=== PATIENT | female | born 1995 | race Caucasian/White ===

== ENCOUNTER 2019-10-08 14:20 | Emergency (ER) | payer SELFPAY ==
--- NOTE | 2019-10-08 14:28 | EDM.PDOC ---
<Justus Jaimes - Last Filed: 10/08/19 18:37> ED HPI GENERAL MEDICAL PROBLEM - General Chief Complaint: General Stated Complaint: PROBLEM W/ IUD Time Seen by Provider: 10/08/19 14:24 Source of Information: Reports: Patient History Limitations: Reports: No Limitations - History of Present Illness INITIAL COMMENTS - FREE TEXT/NARRATIVE: 25-year-old female presents with pelvic pain that started last night while she was having sex with a one night stand partner. He had large girth and penis length estimated to be 7inches. They had sex in missionary position, girl on top position, but was not forceful. She thinks the IUD ripped his condom during sex. He did not ejaculate. IUD has been in since March. She denies fever, chills, vaginal bleeding or discharge. She does admit to suprapubic pain and dysuria. ROS: A 10-point review of systems, other than pertinent positives and negatives as stated per HPI, is otherwise negative Past medical history: No additional pertinent history Past Surgical history: No additional pertinent history Social history: No additional pertinent history Family history: No additional pertinent history PHYSICAL EXAM General: AOx4, GCS = 15, severe distress HEENT: dry mucous membrane Neck: supple, no meningismus, no Kernig or Brudzinski Cardiac: S1S2 tachycardia Respiratory: CTAB, no crackles or rales, no wheezing Abdomen: Soft, RLQ ttp, no rebound or guarding, nondistended, no pulsatile mass. Back: nontender : right adnexal ttp, no discharge, os closed with IUD strings in the vault, no CMT, no left adnexal ttp. Musculoskeletal: NVI distally, no deformity Neuro: No focal deficits, CN 2 - 12 WNL. vaginal Pain Score (Numeric/FACES): 8 - Related Data Allergies Allergy/AdvReac Type Severity Reaction Status Date / Time No Known Allergies Allergy Verified 10/08/19 14:23 Home Meds: Home Meds levonorgestreL [Kyleena] 1 each IMPLANT 10/08/19 [History] ED ROS GENERAL - Review of Systems Review Of Systems: Comprehensive ROS is negative, except as noted in HPI. ED EXAM, GENERAL - Physical Exam Exam: See Below (see dictation) Course - Re-Assessments/Exams Free Text/Narrative Re-Assessment/Exam: 10/08/19 18:37 - I discussed the case with Dr. Goss prior to CT A/P result. She will follow up on CT and is aware of potential consult. MEDICAL DECISION MAKING: I reviewed the patients past medical records, lab and radiographic findings. I discussed the case with the patient. My differential diagnosis included: Ruptured hemorrhagic ovarian cyst, perforated viscus, intraperitoneal bleed. Departure - Departure Disposition: Home, Self-Care 01 Condition: Good Clinical Impression: Ruptured ovarian cyst - Discharge Information *PRESCRIPTION DRUG MONITORING PROGRAM REVIEWED*: Not Applicable *COPY OF PRESCRIPTION DRUG MONITORING REPORT IN PATIENT RAFAELA: Not Applicable Instructions: Ovarian Cyst, [id number] Referrals: PCP,None [Primary Care Provider] - Forms: ED Department Discharge Additional Instructions: The need for follow-up, as well as the timing and circumstances, are variable depending upon the specifics of your emergency department visit. If you don't have a primary care physician on staff, we will provide you with a referral. We always advise you to contact your personal physician following an emergency department visit to inform them of the circumstance of the visit and for follow-up with them and/or the need for any referrals to a consulting specialist. The emergency department will also refer you to a specialist when appropriate. This referral assures that you have the opportunity for follow-up care with a specialist. All of these measure are taken in an effort to provide you with optimal care, which includes your follow-up. Under all circumstances we always encourage you to contact your private physician who remains a resource for coordinating your care. When calling for follow-up care, please make the office aware that this follow-up is from your recent emergency room visit. If for any reason you are refused follow-up, please contact the [facility] Emergency Department at and asked to speak to the emergency department charge nurse. [employer] [facility] [address] [place] [id number] Sepsis Event Note (ED) - Evaluation Sepsis Screening Result: No Definite Risk <Alvin Bedoya - Last Filed: 10/08/19 20:41> Course - Vital Signs Text/Narrative:: 1936 hrs. patient was signed out to me by my partner worked her up. Already talked to Dr. Goss he the surgeon the patient has a CT that does not show anything that looks dangerous or surgical. She apparently has ruptured an ovarian cyst and had some fluid in the pelvis secondary to that. Dr. Goss and the radiologist both agreed that CT did not show any surgical pathology. Repeat CBC will be done and if hemoglobin is stable she will be discharged in satisfactory condition 2031 hrs. the patient's hemoglobin dropped from 14.7-12.6 but her blood pressure was 117 with a pulse of 72 supine sitting and standing. Although she got a little bit dizzy she appeared to be in no acute distress. I discussed the case one more time with Dr. Goss. And we decided that she can go home unless her symptoms worsen. Last Recorded V/S: Last Vital Signs Temp 96.2 F L 10/08/19 19:13 Pulse 79 10/08/19 19:13 Resp 14 10/08/19 19:13 BP 117/81 10/08/19 19:13 Pulse Ox 98 10/08/19 19:13 Orthostatic Blood Pressure [ 116/85 Standing] Orthostatic Blood Pressure [ 112/68 Sitting] Orthostatic Blood Pressure [ 111/66 Supine] - Orders/Labs/Meds Orders: Active Orders 24 hr Category Date Time Status CHLAMYDIA AND GONORRHEA BY TMA Stat Lab 10/08/19 16:05 Received HEMOGLOBIN (HGB) SOLUBILITY [REF] Stat Lab 10/08/19 17:30 Received Sodium Chloride 0.9% [Saline Flush] Med 10/08/19 17:15 Active 10 ml FLUSH ASDIRECTED PRN Sodium Chloride 0.9% [Saline Flush] Med 10/08/19 17:15 Active 2.5 ml FLUSH ASDIRECTED PRN Saline Lock Insert [OM.PC] Stat Oth 10/08/19 17:15 Ordered Medication Orders Sodium Chloride (Saline Flush) 10 ml FLUSH ASDIRECTED PRN PRN Reason: Keep Vein Open Last Admin: 10/08/19 17:30 Dose: 10 ml Documented by: NGHIA Sodium Chloride (Saline Flush) 2.5 ml FLUSH ASDIRECTED PRN PRN Reason: Keep Vein Open Last Admin: 10/08/19 17:30 Dose: 2.5 ml Documented by: NGHIA Labs: Laboratory Tests 10/08/19 10/08/19 10/08/19 Range/Units 15:06 15:06 17:30 WBC 12.98 H (4.0-11.0) K/uL RBC 4.72 (4.30-5.90) M/uL Hgb 14.7 (12.0-16.0) g/dL Hct 43.8 (36.0-46.0) % MCV 92.8 (80.0-98.0) fL MCH 31.1 (27.0-32.0) pg MCHC 33.6 (31.0-37.0) g/dL RDW Std Deviation 41.1 (28.0-62.0) fl RDW Coeff of Sole 12 (11.0-15.0) % Plt Count 236 (150-400) K/uL MPV 10.20 (7.40-12.00) fL Neut % (Auto) 74.7 (48.0-80.0) % Lymph % (Auto) 16.6 (16.0-40.0) % Island % (Auto) 7.4 (0.0-15.0) % Eos % (Auto) 1.1 (0.0-7.0) % Baso % (Auto) 0.2 (0.0-1.5) % Neut # (Auto) 9.7 H (1.4-5.7) K/uL Lymph # (Auto) 2.2 (0.6-2.4) K/uL Island # (Auto) 1.0 H (0.0-0.8) K/uL Eos # (Auto) 0.1 (0.0-0.7) K/uL Baso # (Auto) 0.0 (0.0-0.1) K/uL Nucleated RBC % 0.0 /100WBC Nucleated RBCs # 0 K/uL APTT (18.6-31.3) SEC Lactate (0.20-2.00) mmol/L Sodium (136-145) mmol/L Potassium (3.5-5.1) mmol/L Chloride (98-107) mmol/L Carbon Dioxide (21.0-32.0) mmol/L BUN (7.0-18.0) mg/dL Creatinine (0.6-1.0) mg/dL Est Cr Clr Drug Dosing mL/min Estimated GFR (MDRD) ml/min Glucose (74-106) mg/dL Calcium (8.5-10.1) mg/dL Total Bilirubin (0.2-1.0) mg/dL AST (15-37) IU/L ALT (14-63) IU/L Alkaline Phosphatase (46-116) U/L Total Protein (6.4-8.2) g/dL Albumin (3.4-5.0) g/dL Globulin (2.6-4.0) g/dL Albumin/Globulin Ratio (0.9-1.6) Urine Color YELLOW Urine Appearance CLEAR Urine pH 7.0 (5.0-8.0) Ur Specific Merrill 1.020 (1.001-1.035) Urine Protein NEGATIVE (NEGATIVE) mg/dL Urine Glucose (UA) NEGATIVE (NEGATIVE) mg/dL Urine Ketones NEGATIVE (NEGATIVE) mg/dL Urine Occult Blood NEGATIVE (NEGATIVE) Urine Nitrite NEGATIVE (NEGATIVE) Urine Bilirubin NEGATIVE (NEGATIVE) Urine Urobilinogen 2.0 H (<2.0) EU/dL Ur Leukocyte Esterase NEGATIVE (NEGATIVE) Urine RBC 0-3 (0-2/HPF) Urine WBC 0-3 (0-5/HPF) Ur Epithelial Cells FEW (NONE-FEW) Urine Bacteria 1+ H (NEGATIVE) Urine HCG, Qual NEGATIVE (NEGATIVE) 10/08/19 10/08/19 10/08/19 Range/Units 17:30 17:30 17:30 WBC (4.0-11.0) K/uL RBC (4.30-5.90) M/uL Hgb (12.0-16.0) g/dL Hct (36.0-46.0) % MCV (80.0-98.0) fL MCH (27.0-32.0) pg MCHC (31.0-37.0) g/dL RDW Std Deviation (28.0-62.0) fl RDW Coeff of Sole (11.0-15.0) % Plt Count (150-400) K/uL MPV (7.40-12.00) fL Neut % (Auto) (48.0-80.0) % Lymph % (Auto) (16.0-40.0) % Island % (Auto) (0.0-15.0) % Eos % (Auto) (0.0-7.0) % Baso % (Auto) (0.0-1.5) % Neut # (Auto) (1.4-5.7) K/uL Lymph # (Auto) (0.6-2.4) K/uL Island # (Auto) (0.0-0.8) K/uL Eos # (Auto) (0.0-0.7) K/uL Baso # (Auto) (0.0-0.1) K/uL Nucleated RBC % /100WBC Nucleated RBCs # K/uL APTT 27.8 (18.6-31.3) SEC Lactate 0.9 (0.20-2.00) mmol/L Sodium 138 (136-145) mmol/L Potassium 3.9 (3.5-5.1) mmol/L Chloride 103 (98-107) mmol/L Carbon Dioxide 27.3 (21.0-32.0) mmol/L BUN 9 (7.0-18.0) mg/dL Creatinine 0.9 (0.6-1.0) mg/dL Est Cr Clr Drug Dosing 65.29 mL/min Estimated GFR (MDRD) > 60.0 ml/min Glucose 81 (74-106) mg/dL Calcium 8.7 (8.5-10.1) mg/dL Total Bilirubin 0.9 (0.2-1.0) mg/dL AST 23 (15-37) IU/L ALT 23 (14-63) IU/L Alkaline Phosphatase 90 (46-116) U/L Total Protein 7.5 (6.4-8.2) g/dL Albumin 4.3 (3.4-5.0) g/dL Globulin 3.2 (2.6-4.0) g/dL Albumin/Globulin Ratio 1.3 (0.9-1.6) Urine Color Urine Appearance Urine pH (5.0-8.0) Ur Specific Merrill (1.001-1.035) Urine Protein (NEGATIVE) mg/dL Urine Glucose (UA) (NEGATIVE) mg/dL Urine Ketones (NEGATIVE) mg/dL Urine Occult Blood (NEGATIVE) Urine Nitrite (NEGATIVE) Urine Bilirubin (NEGATIVE) Urine Urobilinogen (<2.0) EU/dL Ur Leukocyte Esterase (NEGATIVE) Urine RBC (0-2/HPF) Urine WBC (0-5/HPF) Ur Epithelial Cells (NONE-FEW) Urine Bacteria (NEGATIVE) Urine HCG, Qual (NEGATIVE) 10/08/19 Range/Units 19:40 WBC (4.0-11.0) K/uL RBC (4.30-5.90) M/uL Hgb 12.6 (12.0-16.0) g/dL Hct 38.3 (36.0-46.0) % MCV (80.0-98.0) fL MCH (27.0-32.0) pg MCHC (31.0-37.0) g/dL RDW Std Deviation (28.0-62.0) fl RDW Coeff of Sole (11.0-15.0) % Plt Count (150-400) K/uL MPV (7.40-12.00) fL Neut % (Auto) (48.0-80.0) % Lymph % (Auto) (16.0-40.0) % Island % (Auto) (0.0-15.0) % Eos % (Auto) (0.0-7.0) % Baso % (Auto) (0.0-1.5) % Neut # (Auto) (1.4-5.7) K/uL Lymph # (Auto) (0.6-2.4) K/uL Island # (Auto) (0.0-0.8) K/uL Eos # (Auto) (0.0-0.7) K/uL Baso # (Auto) (0.0-0.1) K/uL Nucleated RBC % /100WBC Nucleated RBCs # K/uL APTT (18.6-31.3) SEC Lactate (0.20-2.00) mmol/L Sodium (136-145) mmol/L Potassium (3.5-5.1) mmol/L Chloride (98-107) mmol/L Carbon Dioxide (21.0-32.0) mmol/L BUN (7.0-18.0) mg/dL Creatinine (0.6-1.0) mg/dL Est Cr Clr Drug Dosing mL/min Estimated GFR (MDRD) ml/min Glucose (74-106) mg/dL Calcium (8.5-10.1) mg/dL Total Bilirubin (0.2-1.0) mg/dL AST (15-37) IU/L ALT (14-63) IU/L Alkaline Phosphatase (46-116) U/L Total Protein (6.4-8.2) g/dL Albumin (3.4-5.0) g/dL Globulin (2.6-4.0) g/dL Albumin/Globulin Ratio (0.9-1.6) Urine Color Urine Appearance Urine pH (5.0-8.0) Ur Specific Merrill (1.001-1.035) Urine Protein (NEGATIVE) mg/dL Urine Glucose (UA) (NEGATIVE) mg/dL Urine Ketones (NEGATIVE) mg/dL Urine Occult Blood (NEGATIVE) Urine Nitrite (NEGATIVE) Urine Bilirubin (NEGATIVE) Urine Urobilinogen (<2.0) EU/dL Ur Leukocyte Esterase (NEGATIVE) Urine RBC (0-2/HPF) Urine WBC (0-5/HPF) Ur Epithelial Cells (NONE-FEW) Urine Bacteria (NEGATIVE) Urine HCG, Qual (NEGATIVE) Meds: Medications Generic Name Dose Route Start Last Admin Trade Name Freq PRN Reason Stop Dose Admin Sodium Chloride 10 ml 10/08/19 17:15 10/08/19 17:30 Saline Flush FLUSH 10 ml ASDIRECTED PRN Administration Keep Vein Open Sodium Chloride 2.5 ml 10/08/19 17:15 10/08/19 17:30 Saline Flush FLUSH 2.5 ml ASDIRECTED PRN Administration Keep Vein Open Discontinued Medications Generic Name Dose Route Start Last Admin Trade Name Freq PRN Reason Stop Dose Admin Hydrocodone Bitart/Acetaminophen 1 tab 10/08/19 20:34 10/08/19 20:39 [place] 325-10 Mg PO 10/08/19 20:35 1 tab ONETIME ONE Administration Lactated Ringer's 1,000 mls @ 999 mls/hr 10/08/19 17:15 10/08/19 17:28 Ringers, Lactated IV 10/08/19 18:15 999 mls/hr .BOLUS ONE Administration Iopamidol 50 ml 10/08/19 18:35 10/08/19 18:35 Isovue-370 (76%) IV 10/08/19 18:36 50 ml ONETIME ONE Administration Ketorolac Tromethamine 30 mg 10/08/19 14:57 10/08/19 15:21 Toradol IM 10/08/19 14:58 30 mg ONETIME ONE Administration Morphine Sulfate 4 mg 10/08/19 17:15 10/08/19 17:28 Morphine IVPUSH 10/08/19 17:16 4 mg ONETIME ONE Administration Morphine Sulfate 4 mg 10/08/19 18:43 10/08/19 18:48 Morphine IVPUSH 10/08/19 18:44 4 mg ONETIME ONE Administration Ondansetron HCl 4 mg 10/08/19 17:15 10/08/19 17:28 Zofran IVPUSH 10/08/19 17:16 4 mg ONETIME ONE Administration Departure - Departure Time of Disposition: 20:40 Condition: Good Sepsis Event Note (ED) - Focused Exam Vital Signs: Vital Signs Temp Pulse Resp BP Pulse Ox 10/08/19 19:13 96.2 F L 79 14 117/81 98 10/08/19 18:41 61 18 105/65 98 10/08/19 17:32 67 17 113/77 99 10/08/19 14:24 97.2 F 124 H 20 128/86 95
[2019-10-08] MEDS ORDERED: Ketorolac 30 MG/ML SDV IM ONE (14:57)
[2019-10-08] MEDS ORDERED: Sodium Chloride 0.9% 2.5 ML Syringe FLUSH PRN (17:15)
[2019-10-08] MEDS ORDERED: Sodium Chloride 0.9% 10 ML Syringe FLUSH PRN (17:15)
[2019-10-08] MEDS ORDERED: Lactated Ringers 1,000 ML IV ONE (17:15)
[2019-10-08] MEDS ORDERED: Ondansetron 4 MG/2 ML SDV IVPUSH ONE (17:15)
[2019-10-08] MEDS ORDERED: Morphine 4 MG/ML Syringe IVPUSH ONE ×2 (17:15→18:43)
--- NOTE | 2019-10-08 17:59 | US ---
INDICATION: Right adnexal pain. TECHNIQUE: Transabdominal and transvaginal scanning was performed. Transvaginal scanning was performed to optimally evaluate the endometrium and adnexa. Ovarian blood flow was evaluated with color-flow and pulsed Doppler. COMPARISON: None. FINDINGS: The uterus is normal in size and shape. The uterus measures 6.8 x 3.0 x 2.7 cm. No uterine mass is evident. The endometrial stripe is normal in thickness at 3 mm. The ovaries are normal in size and contain a number of follicles. The right ovary measures 3.9 x 3.8 x 2.7 cm and left 3.1 x 2.9 x 1.6 cm. Ovarian blood flow is demonstrated with color-flow and pulsed Doppler. No adnexal mass is evident. A large amount of free fluid is present in the cul-de-sac and adnexa. Limited scanning of the upper abdomen demonstrates a tiny amount of fluid in Morison`s pouch. IMPRESSION: Negative pelvic ultrasound except for large amount of free fluid in the cul-de-sac and adnexa and tiny amount of free fluid in the upper abdomen. Dictated by Tony Garcia MD @ Oct 08 2019 5:49PM Signed by Dr. Tony Garcia @ Oct 08 2019 5:56PM
[2019-10-08 18:04] LABS: BLOOD UREA NITROGEN,BUN 9 mg/dL (7.0-18.0); CARBON DIOXIDE,CO2 27.3 mmol/L (21.0-32.0); CHLORIDE,CL 103 mmol/L (98-107); GLUCOSE RANDOM 81 mg/dL (74-106); POTASSIUM,K 3.9 mmol/L (3.5-5.1); SODIUM,NA 138 mmol/L (136-145)
[2019-10-08] MEDS ORDERED: Iopamidol 755 MG/ML 50 ML Bottle IV ONE (18:35)
--- NOTE | 2019-10-08 19:24 | CT ---
INDICATION: Right pelvic pain with free fluid seen on ultrasound. TECHNIQUE: CT abdomen and pelvis acquired with 50 cc Isovue 370 IV contrast. Coronal and sagittal reconstructions. COMPARISON: Pelvic ultrasound 10/08/2019. FINDINGS: No bowel dilation. There appears to be diffuse mild wall thickening of the small bowel which could represent enteritis. Small amount of free fluid in the pelvis as well as in the right paracolic gutter and between loops of bowel in the left upper abdomen. This could be reactive. No intraperitoneal free air. There are two adjacent peripherally enhancing cystic lesions in the midline upper pelvis which are likely within the right adnexa (series 2, image 101). The larger lesion measures 2.2 cm. This could represent a corpus luteum cyst. Multiple small physiologic follicles in the left ovary. The uterus is normal in appearance. The liver, gallbladder, spleen, pancreas, kidneys, and adrenal glands are negative. Hepatic and portal veins are patent. Symmetric enhancement of the kidneys. No hydronephrosis. No obstructing urinary calculi. The bladder is normal in appearance. No lymphadenopathy. The bones are unremarkable. The lung bases are clear. IMPRESSION: 1. Mild diffuse wall thickening of the small bowel could represent enteritis. Small amount of free fluid scattered throughout the abdomen and pelvis could be reactive. 2. Two adjacent peripherally enhancing cystic lesions within the right adnexa in the midline upper pelvis measuring up to 2.2 cm. This could represent a corpus luteum cyst. Please note that all CT scans at this facility use dose modulation, iterative reconstruction, and/or weight-based dosing when appropriate to reduce radiation dose to as low as reasonably achievable. Dictated by Mayra Veloz MD @ Oct 08 2019 7:08PM Signed by Dr. Mayra Veloz @ Oct 08 2019 7:23PM
[2019-10-08] MEDS ORDERED: Acetaminophen/HYDROcodone 325-10 MG Tab PO ONE (20:34)
== END 2019-10-08 20:51 | disposition home or self-care (01) ==
LOC: MW.ED 14:20
DX: N83.201 Unspecified ovarian cyst, right side (principal); N83.202 Unspecified ovarian cyst, left side; R00.0 Tachycardia, unspecified
CPT/HCPCS: 36415; 74177; 76856; 80053; 81001; 81025; 83605; 85014; 85018; 85025; 85660; 85730; 87491; 87591; 96372; 96374; 96375; 96376; 99284; A9270; J1885; J2270; J2405; J7120; Q9967; 99283